=== PATIENT | male | born 1990 | race Caucasian/White ===

== ENCOUNTER 2023-09-27 17:30 | Emergency (ER) | payer SELFPAY ==
[2023-09-27 17:37] VITALS: BP 171/114
[2023-09-27 18:11] LABS: COVID-19 Antigen Negative (Negative)
--- NOTE | 2023-09-27 18:57 | ED.GENMED ---
History of Present Illness
<Briseyda Amaya, CHAMBER WORKER - Last Filed: 09/28/23 03:49>
General
Chief Complaint: Fever
Source: patient and family (mother at bedside)
Exam Limitations: none
Time Seen by Provider: 09/27/23 18:18
Nursing documentation reviewed up to this point in time: agreed with
Travel History
Have you had any contact with someone who has COVID-19?: No
Do you have any symptoms of coronavirus? Fever > 100 degrees, chills, cough, shortness of breath, sore throat, loss of taste or smell, muscle aches, or headache?: No
History of Present Illness
History of Present Illness:
33 yo male with fever, body aches, headache, intermittent non bloody diarrhea, dark brown urine, abdominal bloating, unable to take anything by mouth without feeling 'stomach in a knot' past 2 days.
Finished 10 days of Clindamycin yesterday for left upper dental infection. Could not even open his jaw due to pain at the time. Now full ROM of jaw and dental pain is completely subsided.
Denies fever but on arrival to prior to coming here, temp reported 101.0.
Past History
<Briseyda Amaya, CHAMBER WORKER - Last Filed: 09/28/23 03:49>
Past History
ED Past Medical History: None
ED Past Surgical History: Other (hernia repair x 2)
Social History
Tobacco: Non-smoker
Personal: Single
Living: with family
Employment: Not employed
Review of Systems
<Briseyda Amaya, CHAMBER WORKER - Last Filed: 09/28/23 03:49>
Review of Systems
Allergies reviewed?: Yes
All Other Systems: ROS reviewed and negative except as documented in HPI and ROS
Constitutional: Reports fever, fatigue and chills
EENT: Denies sore throat
Respiratory: Denies cough or trouble breathing
Cardiac: Denies chest pain
ABD/GI: Reports abdominal pain (feels bloated when he tries to eat or drink anything past 2 days.) and diarrhea; Denies nausea, vomiting, bloody stools or black stools
: Reports frequency and dark urine; Denies dysuria, flank pain, difficulty voiding or urgency
Musculoskeletal: Reports other (general body aches)
Skin: Reports no symptoms
Neurological: Reports headache; Denies dizzy, weakness or numbness
Phy Exam
<Briseyda Amaya, CHAMBER WORKER - Last Filed: 09/28/23 03:49>
Physical Exam
Physical Exam:
GENERAL: No acute distress. A&Ox3. Morbidly obese
CONSTITUTIONAL: 103.1
EYES: Clear, conjunctivae normal
Neck: Supple
ENMT: moist mucus membranes, Pharynx nl, no visible or palpable abscess, no tenderness to the upper left gums. Full ROM of jaw. TMs normal
RESPIRATORY: Regular respirations, nonlabored, lungs clear.
CARDIOVASCULAR: Regular rate and rhythm, no murmurs, no rubs.
GI: Soft, nontender, normal BS
MUSCULOSKELETAL: Moves with ease. Well perfused. No edema
SKIN: Warm, dry, pink
PSYCH: Pleasant, normal mood and affect. Well kept, interactive and appropriate
NEUROLOGIC: Awake, alert and oriented. No focal neurological deficits
Course
<Briseyda Amaya, CHAMBER WORKER - Last Filed: 09/28/23 03:49>
Orders/Labs/Results
Orders:
Orders
09/27/23 17:44
INF RAPID [Influenza A+B Rapid Molecular] Urgent
MAREN Source: Nasal Swab
Specimen Description:
Date Specimen was Collected: 09/27/23
Time Specimen was Collected: 17:44
09/27/23 17:45
COVID-19 Antigen Urgent
Source: Nasal Swab
09/27/23 18:54
IV Insert/Care/Rem.- Treatment PRN
0.9% Sodium Chloride 1000 ml [Nss] 1,500 ml IV BOLUS
Acetaminophen [Tylenol] 1,000 mg PO NOW STA
09/27/23 18:55
CR Chest - 2 Views Urgent
Comment:
Reason For Exam: High Fever
09/27/23 19:24
Complete Blood Count/With Diff Urgent
Comprehensive Metabolic Panel Urgent
Lactic Acid Q4H
Comment: CANCEL 2nd LACTIC ACID IF 1st LACTIC ACID IS LESS THAN 2
Blood Culture Q30M
MAREN Source: Blood/Venous
Specimen Description:
09/27/23 20:52
Urinalysis Reflex To Culture Urgent
Date Specimen was Collected: 09/27/23
Time Specimen was Collected: 17:44
Urine Microscopic Reflex Cult Urgent
Urine Culture Urgent
MAREN Source: U
Specimen Description:
Date Specimen was Collected: 09/27/23
Time Specimen was Collected: 17:44
09/27/23 21:11
CT Abd/pelvis W Iv Cont Urgent
Comment:
Reason For Exam: bloating, hematuria
09/27/23 22:48
Cephalexin Monohydrate [Keflex] 500 mg PO NOW STA
09/27/23 22:51
LevoFLOXacin [Levaquin] 500 mg PO NOW STA
Abnormal Lab Results
09/27/23 09/27/23
19:24 20:52
MCV 78.8 L fL
(80.0-94.0)
MPV 10.8 H fL
(7.4-10.4)
Abs Immat Gran (auto) 0.1 H 10^3/uL
(0-0.05)
Absolute Neuts (auto) 8.1 H 10^3/uL
(1.4-6.5)
Absolute Lymphs (auto) 1.1 L 10^3/uL
(1.2-3.4)
Neutrophils % 83.1 H %
(42.2-75.2)
Lymphocytes % 11.1 L %
(20.5-51.1)
Sodium 132 L mmol/L
(135-145)
Chloride 95 L mmol/L
(98-107)
Glucose 165 H mg/dl
(70-99)
Urine Ketones 2+ A
(Negative)
Ur Occult Blood Reflex 4+ A
(Negative)
Urine Nitrite (Reflex) Positive A
(Negative)
Urine Bilirubin 1+ A
(Negative)
Urine Urobilinogen 2+ A
(Neg - 1+)
Leukocyte Esterase Rfl 1+ A
(Negative)
Urine RBC 3-6 A /HPF
(0-2)
Urine WBC (Reflex) 11-15 A /HPF
(0-5)
Urine Bacteria (Reflex) Many A
(Negative)
Urine Albumin (Reflex) 2+ A
(Neg - Trace)
09/27/23 19:24
09/27/23 19:24
Vital Signs
Initial and Last Documented VS:
Initial Vital Signs
Temp Pulse Resp BP Pulse Ox
101.1 F H 124 22 171/114 99
09/27/23 17:37 09/27/23 17:37 09/27/23 17:37 09/27/23 17:37 09/27/23 17:37
Last Documented Vital Signs
Temp Pulse Resp BP Pulse Ox
99.5 F 106 15 125/76 94
09/27/23 20:57 09/27/23 21:30 09/27/23 21:30 09/27/23 21:00 09/27/23 21:30
Bottom Turning Lathe Tender consulted with Physician
Bottom Turning Lathe Tender consulted with physician?: Yes
Name of Physician Consulted: [facility]
<Nevaeh Potter PA-C - Last Filed: 10/01/23 07:21>
Orders/Labs/Results
Orders:
Orders
09/27/23 17:44
INF RAPID [Influenza A+B Rapid Molecular] Urgent
MAREN Source: Nasal Swab
Specimen Description:
Date Specimen was Collected: 09/27/23
Time Specimen was Collected: 17:44
09/27/23 17:45
COVID-19 Antigen Urgent
Source: Nasal Swab
09/27/23 18:54
IV Insert/Care/Rem.- Treatment PRN
0.9% Sodium Chloride 1000 ml [Nss] 1,500 ml IV BOLUS
Acetaminophen [Tylenol] 1,000 mg PO NOW STA
09/27/23 18:55
CR Chest - 2 Views Urgent
Comment:
Reason For Exam: High Fever
09/27/23 19:24
Complete Blood Count/With Diff Urgent
Comprehensive Metabolic Panel Urgent
Lactic Acid Q4H
Comment: CANCEL 2nd LACTIC ACID IF 1st LACTIC ACID IS LESS THAN 2
Blood Culture Q30M
MAREN Source: Blood/Venous
Specimen Description:
09/27/23 20:52
Urinalysis Reflex To Culture Urgent
Date Specimen was Collected: 09/27/23
Time Specimen was Collected: 17:44
Urine Microscopic Reflex Cult Urgent
Urine Culture Urgent
MAREN Source: U
Specimen Description:
Date Specimen was Collected: 09/27/23
Time Specimen was Collected: 17:44
09/27/23 21:11
CT Abd/pelvis W Iv Cont Urgent
Comment:
Reason For Exam: bloating, hematuria
09/27/23 22:48
Cephalexin Monohydrate [Keflex] 500 mg PO NOW STA
09/27/23 22:51
LevoFLOXacin [Levaquin] 500 mg PO NOW STA
Abnormal Lab Results
09/27/23 09/27/23
19:24 20:52
MCV 78.8 L fL
(80.0-94.0)
MPV 10.8 H fL
(7.4-10.4)
Abs Immat Gran (auto) 0.1 H 10^3/uL
(0-0.05)
Absolute Neuts (auto) 8.1 H 10^3/uL
(1.4-6.5)
Absolute Lymphs (auto) 1.1 L 10^3/uL
(1.2-3.4)
Neutrophils % 83.1 H %
(42.2-75.2)
Lymphocytes % 11.1 L %
(20.5-51.1)
Sodium 132 L mmol/L
(135-145)
Chloride 95 L mmol/L
(98-107)
Glucose 165 H mg/dl
(70-99)
Urine Ketones 2+ A
(Negative)
Ur Occult Blood Reflex 4+ A
(Negative)
Urine Nitrite (Reflex) Positive A
(Negative)
Urine Bilirubin 1+ A
(Negative)
Urine Urobilinogen 2+ A
(Neg - 1+)
Leukocyte Esterase Rfl 1+ A
(Negative)
Urine RBC 3-6 A /HPF
(0-2)
Urine WBC (Reflex) 11-15 A /HPF
(0-5)
Urine Bacteria (Reflex) Many A
(Negative)
Urine Albumin (Reflex) 2+ A
(Neg - Trace)
09/27/23 19:24
09/27/23 19:24
Vital Signs
Initial and Last Documented VS:
Initial Vital Signs
Temp Pulse Resp BP Pulse Ox
101.1 F H 124 22 171/114 99
09/27/23 17:37 09/27/23 17:37 09/27/23 17:37 09/27/23 17:37 09/27/23 17:37
Last Documented Vital Signs
Temp Pulse Resp BP Pulse Ox
99.5 F 106 15 125/76 94
09/27/23 20:57 09/27/23 21:30 09/27/23 21:30 09/27/23 21:00 09/27/23 21:30
<Briseyda Amaya NP - Last Filed: 09/28/23 03:49>
MDM/Problems Addressed
Differential Diagnosis Includes:
sepsis, flu, covid, UTI, pyelonephritis, kidney stone, vial illness
MDM/Problems Addressed:
33 yo male with fever, body aches, headache, intermittent non bloody diarrhea, dark brown urine, abdominal bloating, unable to take anything by mouth without feeling 'stomach in a knot' past 2 days.
Finished 10 days of Clindamycin yesterday for left upper dental infection. Could not even open his jaw due to pain at the time. Now full ROM of jaw, dental pain is completely subsided.
Denies fever but on arrival to prior to coming here, temp reported 101.0.
Pt is NAD, pleasant, does not appear ill
Temp for this examiner 103.1
HR 124
Abdomen benign, no sign of dental infection
09/27/2023 1923 PM
COVID-negative
Influenza a and B are negative
09/27/20232019 PM
CBC with no clinically significant abnormality
CMP with no clinically significant abnormality
Chest x-ray: NAD
09/27/2023 2112 PM
Patient defervesced, temperature 99.4 at this time
UA positive nitrites, +1 leukocytes, 4+ occult blood, 2+ albumin, +1 bilirubin, +[address] abdomen pelvis with IV only contrast pending
09/28/2023 2225 AM
After IV fluids and Tylenol patient temperature 99.5
CT abdomen pelvis radiology report read unremarkable, nothing to explain patient's symptoms. Impression: IMPRESSION: Examination is slightly limited because of large body habitus and resultant ring artifact, particularly prominent over the pelvis.
Probable 1-2 mm nephrolith within the lower pole the right kidney as described.
Hepatomegaly with diffuse fatty infiltration of the liver.
Splenomegaly with maximum dimension of 19.3 cm, with top-normal considered 13 cm.
Prominent pelvic lymph nodes, but not enlarged by size criteria.
Small fat-containing umbilical hernia with no evidence for associated inflammation.
Patient will be treated for a hemorrhagic cystitis/UTI with Levaquin as he is very anxious about taking Keflex due to his penicillin allergy
He will follow-up with urology
Patient ambulated out with normal gait upon discharge.
<Briseyda Amaya CHAMBER WORKER - Last Filed: 09/28/23 03:49>
*Critical Care Note
Total Time (30-74mins, 75-104mins- exclusive of procedures): Not Applicable
<Nevaeh Potter PA-C - Last Filed: 10/01/23 07:21>
Update Note
Update Note:
10/01/2023 0721 AM
Patient's urine culture was E. coli pansensitive, she was placed on Levaquin, no treatment change
ED Attending Note
<Briseyda Amaya CHAMBER WORKER - Last Filed: 09/28/23 03:49>
-
Portions of this chart may have been created with voice recognition software.� Occasional wrong word or��sound alike� substitutions may have occurred due to the inherent limitations of voice recognition software.
Discharge Plan
Departure
Patient Disposition: Home (Routine Discharge)
Date of Disposition: 09/27/23
Time of Disposition: 22:52
Patient with high blood pressure during this ER visit?: No
Condition: Good
Discharge Problem:
Acute hemorrhagic cystitis
Instructions: Acute Cystitis (DC), Fever, Adult (DC), Urinary Tract Infection, Adult ED
Prescriptions:
New
levofloxacin 500 mg tablet
500 mg PO DAILY 6 Days Qty: 6 0RF
No Action
prednisone 10 MG tablet
10 mg PO .TAPER Qty: 30 0RF
Rx Instructions:
Take 50mg daily for 2 days, 40mg daily for 2 days, 30mg daily for 2 days, 20mg daily for 2 days, 10mg daily for 2 days
albuterol sulfate 1 PUFF HFA aerosol inhaler
2 puff inhalation QIDPRN PRN (Reason: cough/SOB) Qty: 1 0RF
hydrocodone-acetaminophen 1 TABLET tablet
1 tab PO Q4HPRN PRN (Reason: severe pain) Qty: 8 0RF
Referrals:
NONE,* [Family Provider] -
Branden Linton MD [Active] - Call in 1-3 days for appt
Activity Restrictions/Additional Instructions:
As we discussed, I sent a prescription to your pharmacy for the Levaquin. Start it tomorrow as you were given your first dose here today.
Return here immediately for fever above 100.5 NOT relieved with Tylenol 1000 mg every 8 hours or Ibuprofen 600 mg every 6 hours, vomiting, or feeling sicker in any way.
Call the Urologist office Saturday morning for follow up appointment
Drink plenty of fluids.
Interventions
Interventions:
*Risk Screen - Suicide Last Done: 09/27/23 18:33
*General Assessment Last Done: 09/27/23 18:55
*Neglect/Abuse Screening Last Done: 09/27/23 18:33
ED- Fall Risk Assessment Last Done: 09/27/23 20:58
*ED COVID-19 Vaccine History Last Done: 09/27/23 18:55
*Nursing Disposition Last Done: 09/27/23 23:05
ED- Neurological Assessment Last Done: 09/27/23 19:38
ED-Skin Assessment Last Done: 09/27/23 19:38
Discharge Date and Time
Discharge Date/Time: 09/27/23 23:06
[2023-09-27 19:04] VITALS: BMI 73.2
[2023-09-27] MEDS: NSS 1500 IV (19:25)
[2023-09-27] MEDS: TYLENOL 1000 MG PO (19:25)
[2023-09-27 19:34] LABS: % Basophils 0.4 % (0-2); % Eosinophils 0.2 % (0-6); % Immature Granulocytes 0.5 % (0-0.5); % Lymphocytes 11.1 % (20.5-51.1); % Monocytes 4.7 % (1.7-9.3); % Neutrophils 83.1 % (42.2-75.2); Absolute Immature Granulocytes 0.1 10^3/uL (0-0.05); Absolute Lymphocytes 1.1 10^3/uL (1.2-3.4); Absolute Monocytes 0.5 10^3/uL (0.1-0.6); Absolute Neutrophils 8.1 10^3/uL (1.4-6.5); Hematocrit 40.1 % (39.0-52.0); Hemoglobin 13.8 g/dL (13.0-18.0); Mean Corp Hgb Conc. 34.4 g/dL (33.0-37.0); Mean Corpuscular Hgb 27.1 pg (27.0-31.0); Mean Corpuscular Volume 78.8 fL (80.0-94.0); Mean Platelet Volume 10.8 fL (7.4-10.4); Nucleated Red Blood Cells % 0 % (-); Platelet Count 209 10^3/uL (130-400); Red Blood Cell Count 5.09 10^6/uL (4.70-6.10); Red Cell Dist. Width 12.5 % (11.5-14.5); White Blood Cell Count 9.8 10^3/uL (4.8-10.8)
[2023-09-27 19:45] LABS: Lactic Acid 1.8 mmol/L (0.7-2.0)
[2023-09-27 19:46] LABS: ALT (SGPT) 26 U/L (0-50); AST (SGOT) 23 U/L (17-59); Alkaline Phosphatase 74 U/L (38-126); Blood Urea Nitrogen 12 mg/dl (9-20); Calcium 8.5 mg/dl (8.4-10.2); Carbon Dioxide 26 mmol/L (22-30); Chloride 95 mmol/L (98-107); Estimated Creatinine Clearance > 125 ml/min; Glucose 165 mg/dl (70-99); Potassium 4.1 mmol/L (3.5-5.1); Sodium 132 mmol/L (135-145); Total Bilirubin 0.9 mg/dl (0.2-1.3); Total Protein 6.9 g/dl (6.3-8.2); eGFR > 60.00
[2023-09-27 20:50] VITALS: BP 151/71
[2023-09-27 21:00] VITALS: BP 125/76
[2023-09-27 21:07] LABS: Urine Albumin 2+ (Neg - Trace); Urine Bilirubin 1+ (Negative); Urine Character Very Cloudy (Clear); Urine Color Brown; Urine Glucose Negative (Negative); Urine Ketone 2+ (Negative); Urine Leukocyte 1+ (Negative); Urine Nitrite Positive (Negative); Urine Occult Blood 4+ (Negative); Urine Urobilinogen 2+ (Neg - 1+)
[2023-09-27 21:21] LABS: Urine Bacteria Many (Negative)
[2023-09-27] MEDS: LEVAQUIN 500 MG PO (22:54)
== END 2023-09-27 23:06 | disposition home or self-care (01) ==
LOC: EMR 17:30
PROVIDERS: Emergency Medicine; Registered Nurse; EMERGENCY PHYSICIAN Emergency Medicine
DX: N30.01 Acute cystitis with hematuria (principal); K76.0 Fatty (change of) liver, not elsewhere classified; Z11.52 Encounter for screening for COVID-19; Z88.0 Allergy status to penicillin
CPT/HCPCS: 99285; 96360; 71046; 74177; 80053; 81003; 81015; 83605; 85025; 87040; 87077; 87086; 87186; 87502; 87811; Q9967